=== PATIENT | female | born 1990 | race Caucasian/White ===

== ENCOUNTER 2018-05-27 00:26 | Emergency (ER) | payer MEDICAID ==
[~2018-05-27] VITALS: Ht 157.5 cm; Wt 69.4 kg
[2018-05-27 00:30] VITALS: Ht 157.5 cm; Wt 69.4 kg
[2018-05-27 01:45] VITALS: BP 139/80
== END 2018-05-27 01:45 | disposition home or self-care (01) ==
LOC: ED 00:26
DX: R30.0 Dysuria (principal); R10.9 Unspecified abdominal pain; R50.9 Fever, unspecified; R31.9 Hematuria, unspecified